=== PATIENT | male | born 1935 | race Caucasian/White ===

== ENCOUNTER → 2019-01-22 | Outpatient (CLI) | payer OTHER ==
[~2019-01-22] MED LIST: ARICEPT 5 MG TAB5 MG PO; ARICEPT10 M1 PO; ASA81BEC PO; B12INJ PO; COLACE100 MG PO; FISH OIL 1,001000 M2 PO; FISH OIL 1,2001 EAC4 PO; FLEXERIL PO; FOLIC ACID0.8 MG PO; FOLIC ACID1 MG PO; HYDROCODONE-AP1 EAC6 PO; LISINOPRIL20 MG PO; MOBIC15 MG PO; NEURONTIN 300300 M1 PO; NORCO 5-325 TA1 EACH PO; NORVASC2.5 MG PO; PRAVACHOL20 MG PO; ROBAXIN 750 MG750 M1 PO; TRAMADOL 50 MG50 MG PO; TRIAMTERENE-HC1 EAC1 PO; TRIAMTERENE/HCT1 CA1 PO; TYLENOL EXTRA500 MG PO; ULTRAM 50MG TAB50 MG PO; VITAMIN B-1001 EACH PO; VITAMIN B-12500 MCG PO; VITAMIN D31000 UNIT PO; VITAMIN E400 UNI2 PO; VITAMINC500 PO; XALATAN2.5 ML OPHTHALMIC; ZESTRIL40 MG PO
== END ==
LOC: RAD 15:55
DX: M96.1 Postlaminectomy syndrome, not elsewhere classified (principal); M47.816 Spondylosis without myelopathy or radiculopathy, lumbar region; M48.061 Spinal stenosis, lumbar region without neurogenic claudication